=== PATIENT | female | born 1965 | race Caucasian/White ===

== ENCOUNTER 2021-05-06 02:00 | Emergency (ER) | payer MEDICAID ==
[~2021-05-06] VITALS: Ht 154.9 cm; Wt 62.0 kg
[2021-05-06] MEDS ORDERED: ACETAMINOPHEN 325MG TABLET PO ONE (02:45)
[2021-05-06] MEDS ORDERED: LORAZEPAM 0.5MG TABLET PO ONE (02:45)
[2021-05-06 02:52] LABS: BASOPHILS % 0.5 % (0.0-2.0); EOSINOPHILS % 0.4 % (0.0-5.0); HEMATOCRIT. 40.2 % (36.0-48.0); HEMOGLOBIN. 13.5 g/dL (12.0-16.0); LYMPHOCYTES % 20.9 % (20.0-50.0); MEAN CORPUSCULAR HEMOGLOBIN 29.5 pg (28.0-32.0); MEAN CORPUSCULAR VOLUME 87.6 fL (81.0-99.0); MONOCYTES % 8.4 % (2.0-8.0); NEUTROPHILS % 69.8 % (40.0-76.0); PLATELET 210 x1000/uL (130-400); RED BLOOD CELL COUNT 4.59 mill/uL (4.2-5.4)
[2021-05-06 02:59] LABS: CHLORIDE 105 mEq/L (98-107)
[2021-05-06 05:43] VITALS: BP 132/58
== END 2021-05-06 05:46 | disposition home or self-care (01) ==
LOC: ER 02:00
DX: R07.89 Other chest pain (principal); G47.00 Insomnia, unspecified; E78.00 Pure hypercholesterolemia, unspecified; I10 Essential (primary) hypertension
CPT/HCPCS: 36415; 71045; 80053; 83880; 84484; 85025; 93005; 99285

== ENCOUNTER 2024-06-13 15:08 | Emergency (ER) | payer MEDICAID ==
[~2024-06-13] VITALS: Ht 157.5 cm; Wt 73.0 kg
[2024-06-13 15:11] VITALS: O2SAT 99
[2024-06-13 15:19] VITALS: TEMP 36.9; O2SAT 98
[2024-06-13 15:58] VITALS: BP 174/82; PULSE 76; RESP 16
[2024-06-13] MEDS: KETOROLAC 30MG/ML VIAL IM ONE (15:58)
[2024-06-13] MEDS ORDERED: IBUP-2029 MT (16:50)
== END 2024-06-13 17:31 | disposition home or self-care (01) ==
LOC: ER 15:08
DX: M25.521 Pain in right elbow (principal); M25.561 Pain in right knee; R07.81 Pleurodynia; E78.00 Pure hypercholesterolemia, unspecified
CPT/HCPCS: 99284; 71045; 73080; 73562; 96372; J1885